=== PATIENT | female | born 1995 | race African-American/Black ===

== ENCOUNTER → 2016-10-05 | Day surgery (SDC) | payer OTHER ==
[~2016-10-05] MED LIST: KETOROLAC 60 MG/2 ML VIAL (J1885) As Ordered ONE; LIDOCAINE 2% INJ 100 MG/5 ML SDV (FOR ANES.) As Ordered ONE; LR 1,000 ML IV SCH; MEPERIDINE INJ 25 MG/ML VIAL (J2175) IV PRN; METOCLOPRAMIDE INJ 10MG/2ML VIAL (J2765) As Ordered ONE; METOCLOPRAMIDE INJ 10MG/2ML VIAL (J2765) IV PRN; MIDAZOLAM INJ 2 MG/2 ML VIAL (J2250) As Ordered ONE; NS 1,000 ML IV SCH; NS 500 ML IV ONE; ONDANSETRON 4MG/2ML VIAL (J2405) IV PRN; OXYTOCIN INJ 10 UNITS/ML VIAL (J2590) As Ordered ONE; PERCOCET 5MG/325MG TAB PO PRN; PRENCAP PO; PROPOFOL 200 MG/20 ML VIAL As Ordered ONE; RHOGAM 300 MCG (1500 IU) INJ (J2790) IM ONE; ROCURONIUM BROMIDE 50 MG/5 ML VIAL As Ordered ONE; dexameTHASONE 4 MG/ML 1ML VIAL (J1100) As Ordered ONE; fentaNYL 100 MCG/2 ML INJECTION (J3010) As Ordered ONE; fentaNYL 100 MCG/2 ML INJECTION (J3010) IV PRN
[2016-10-05 16:20] LABS: MEAN CORPUSCULAR HEMOGLOBIN 30.8 pg (27.0-33.0); MEAN CORPUSCULAR HGB CONC 34.1 g/dl (32.0-36.5); MEAN CORPUSCULAR VOLUME 90.2 fl (80.0-96.0); RED CELL DISTRIBUTION WIDTH 13.3 % (11.5-14.5); WHITE BLOOD COUNT 5.2 K/mm3 (4.0-10.0)
[2016-10-05 16:37] LABS: ANION GAP 8 MEQ/L (8-16); BLOOD UREA NITROGEN 10 MG/DL (7-18); CALCIUM LEVEL 8.7 MG/DL (8.5-10.1); CARBON DIOXIDE LEVEL 26 MEQ/L (21-32); CHLORIDE LEVEL 103 MEQ/L (98-107); CREATININE FOR GFR 0.66 MG/DL (0.55-1.02); GLUCOSE, FASTING 84 MG/DL (70-105); POTASSIUM SERUM 3.7 MEQ/L (3.5-5.1); SODIUM LEVEL 137 MEQ/L (136-145)
[2016-10-05 20:00] VITALS: BP 106/66
--- NOTE | 2016-10-06 00:05 | RO ---
DATE OF PROCEDURE: 10/05/2016 PREOPERATIVE DIAGNOSIS: Missed 8 weeks. POSTOPERATIVE DIAGNOSIS: Missed 8 weeks. OPERATION PROPOSED: Suction curettage. OPERATION PERFORMED: Suction curettage. SURGEON: Dr. Mario Alberto Hirsch LABOR/EXCAVATOR: ANESTHESIA: General. ESTIMATED BLOOD LOSS: 200 mL DESCRIPTION OF PROCEDURE: After adequate anesthesia, prepped and draped in lithotomy position. Sequentials on board. No antibiotics required. Bladder was drained for 50 mL of eduardo-colored urine. Weighted speculum in vagina, single-tooth tenaculum on the anterior lip of cervix. Uterus sounded to depth of 6 cm, dilated to Jumana 7-8, curved suction curette applied. Curettage to the cavity was smooth. Uterus placed in anatomical position, well contracted, receiving 5 units of Pitocin IV and then 15 running in the bottle. The patient was then sent to recovery in good condition. She is Rh negative, is a candidate for RhoGAM. Carbon Copy: Sawyer Winslow OB
== END | disposition home or self-care (01) ==
LOC: M SDC 15:33
PROVIDERS: ATTEND Obstetrics & Gynecology
DX: O02.1 Missed abortion (principal)
CPT/HCPCS: 36415; 59820; 80048; 84702; 85027; 86850; 86900; 86901; 88305; J1100; J1885; J2250; J2590; J2765; J2790; J3010

== ENCOUNTER 2016-10-28 10:51 | Emergency (ER) | payer OTHER ==
[~2016-10-28 10:51] MED LIST changes: -KETOROLAC 60 MG/2 ML VIAL (J1885) As Ordered ONE; -LIDOCAINE 2% INJ 100 MG/5 ML SDV (FOR ANES.) As Ordered ONE; -LR 1,000 ML IV SCH; -MEPERIDINE INJ 25 MG/ML VIAL (J2175) IV PRN; -METOCLOPRAMIDE INJ 10MG/2ML VIAL (J2765) As Ordered ONE; -METOCLOPRAMIDE INJ 10MG/2ML VIAL (J2765) IV PRN; -MIDAZOLAM INJ 2 MG/2 ML VIAL (J2250) As Ordered ONE; -NS 1,000 ML IV SCH; -NS 500 ML IV ONE; -ONDANSETRON 4MG/2ML VIAL (J2405) IV PRN; -OXYTOCIN INJ 10 UNITS/ML VIAL (J2590) As Ordered ONE; -PERCOCET 5MG/325MG TAB PO PRN; -PROPOFOL 200 MG/20 ML VIAL As Ordered ONE; -RHOGAM 300 MCG (1500 IU) INJ (J2790) IM ONE; -ROCURONIUM BROMIDE 50 MG/5 ML VIAL As Ordered ONE; -dexameTHASONE 4 MG/ML 1ML VIAL (J1100) As Ordered ONE; -fentaNYL 100 MCG/2 ML INJECTION (J3010) As Ordered ONE; -fentaNYL 100 MCG/2 ML INJECTION (J3010) IV PRN
[2016-10-28] MEDS ORDERED: METOCLOPRAMIDE INJ 10MG/2ML VIAL (J2765) As Ordered ONE (11:32)
[2016-10-28 11:43] LABS: MICROSCOPIC INDICATED? MAN YES (NO)
[2016-10-28 11:47] LABS: BACTERIA, URINE NONE SEEN; HYALINE CAST, URINE NONE SEEN /lpf (0-1); MICROSCOPIC EXAM PERFORMED; RBC, URINE TNTC /hpf (0-3); SQUAMOUS EPITHELIAL CELL URINE SMALL AMOUNT /hpf (SMALL AMT); WBC, URINE 0-1 /hpf (0-3)
[2016-10-28 12:06] LABS: ALBUMIN 3.9 GM/DL (3.2-5.2); ALBUMIN/GLOBULIN RATIO 1.08 (1.00-1.93); ALKALINE PHOSPHATASE 62 U/L (45-117); ALT/SGPT 13 U/L (12-78); ANION GAP 8 MEQ/L (8-16); AST/SGOT 13 U/L (15-37); BILIRUBIN,TOTAL 1.3 MG/DL (0.2-1.0); BLOOD UREA NITROGEN 9 MG/DL (7-18); CALCIUM LEVEL 8.5 MG/DL (8.5-10.1); CARBON DIOXIDE LEVEL 26 MEQ/L (21-32); CHLORIDE LEVEL 107 MEQ/L (98-107); CREATININE FOR GFR 0.71 MG/DL (0.55-1.02); GLUCOSE, FASTING 95 MG/DL (70-105); POTASSIUM SERUM 3.5 MEQ/L (3.5-5.1); SODIUM LEVEL 141 MEQ/L (136-145); TOTAL PROTEIN 7.5 GM/DL (6.4-8.2)
[2016-10-28 12:21] LABS: MEAN CORPUSCULAR HEMOGLOBIN 29.7 pg (27.0-33.0); MEAN CORPUSCULAR HGB CONC 32.1 g/dl (32.0-36.5); MEAN CORPUSCULAR VOLUME 92.5 fl (80.0-96.0); RED CELL DISTRIBUTION WIDTH 12.5 % (11.5-14.5); WHITE BLOOD COUNT 2.6 K/mm3 (4.0-10.0)
--- NOTE | 2016-10-28 13:52 | REP ---
PELVIC SONOGRAPHY: HISTORY: Pelvic pain. Status post D and C. FINDINGS: Transabdominal and transvaginal scanning are performed. Uterine dimensions are 8.1 x 4.0 x 5.3 cm. Endometrial echo is 0.6 cm thick. There is a small quantity of free fluid in the right adnexa. No focal uterine mass is seen. Doppler flow is normal in both ovaries. Resistive index for the right ovary is 0.34 for the left 0.44. There is a 1.6 x 1.3 x 0.8 cm cystic area in the right ovary. Right ovary dimensions are 2.5 x 2.0 x 3.1 cm. Left ovary measures 2.4 x 1.7 x 1.2 cm. IMPRESSION: Small hypoechoic cyst right ovary may be a hemorrhagic cyst, 1.6 cm . Small quantity of right sided cul-de-sac fluid. Otherwise unremarkable pelvic sonography. Signed by Jarrell Raymond MD 10/28/2016 02:28 P
--- NOTE | 2016-10-28 14:14 | EDDOCDS ---
Nurse's Notes [facility] Name: Charlene Zazueta Age: 20 yrs Sex: Female : 1995 Arrival Date: 10/28/2016 Time: 10:51 Bed I3 / M3 Private MD: NO PRIMARY PHYSICIAN, . Diagnosis: Other abnormal uterine and vaginal bleeding-S/P D&C 10/05/16;Other ovarian cysts-Right;Anemia, unspecified Presentation: 10/28 11:02 Presenting complaint: Patient states: had a D&C for miscarriage 3 weeks ago , heavy [facility] vaginal bleeding with clots started 10-25-16 going through a pad per hour.denies feeling dizzy or faint. Risk factors: The patient reports no loss of conciousness prior to arrival. This patient has not had a hysterectomy. This patient has not begun menopause. Adult Sepsis Screening: The patient does not have new or worsening altered mentation. Patient's respiratory rate is less than 22. Systolic blood pressure is greater than 100. Patient has a qSOFA score of 0- Negative Sepsis Screen. Suicide/Homicide risk assessment- the patient denies having any suicidal and/or homicidal ideations and does not present with any other emotional, behavioral or mental health complaints. Status: The patient is a dependent. Transition of care: patient was not received from another setting of care. 11:02 Acuity: CHRISTIANO Level 3 [facility] 11:02 Method Of Arrival: Walkin/Carried/Asstd [facility] Triage Assessment: 11:05 General: Appears comfortable, well nourished, well groomed, Behavior is appropriate for [facility] age. Pain: Denies pain. HIV screening NA for this visit Offered previously. Neurological: Level of Consciousness is awake, alert. Respiratory: Airway is patent Respiratory effort is even, unlabored. : Reports vaginal bleeding that is bright red with clots heavy flow. Derm: Skin is pink, warm & dry. 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 none - PMHx: none; - PSHx: D & C; - Social history: Smoking status: Patient states was never smoker of tobacco. No barriers to communication noted, The patient speaks fluent [place]. - Family history: Not pertinent. - : The pt / caregiver states he / she is not on anticoagulants. Home medication list is obtained from the patient. - Exposure Risk Screening:: None identified. Screenin:36 Screening information is obtained from the patient. Fall risk: No risks identified. pml Assistance ADL's: requires no assistance with activities of daily living. Abuse/DV Screen: The patient / caregiver reports he/she is: not in a situation that causes fear, pain or injury. Nutritional screening: No deficits noted. Advance Directives: Currently, there is no health care proxy. home support is adequate. Assessment: 11:36 General: Appears in no apparent distress, Behavior is appropriate for age, cooperative. pml Pain: Denies pain. Neurological: Level of Consciousness is awake, alert, Oriented to person, place, time. Cardiovascular: Capillary refill < 3 seconds. Respiratory: Airway is patent Respiratory effort is. GI: Abdomen is non- distended. : Reports vaginal bleeding that is bright red heavy flow Denies burning with urination, malodorous discharge. Derm: Skin is normal. 12:35 Reassessment: Patient appears in no apparent distress at this time. Patient denies pain jo3 at this time. awaiting results at this time. Aware of plan of care . 13:25 General: Appears in no apparent distress, comfortable, Behavior is appropriate for age, jo3 cooperative, pleasant. General: Awaiting disposition at this time. Significant other at bedside. Aware of plan of care . Neurological: Level of Consciousness is awake, alert, Oriented to person, place, time. Respiratory: Airway is patent Respiratory effort is even, unlabored. 14:13 General: Appears in no apparent distress, comfortable, Behavior is appropriate for age, jo3 cooperative, pleasant. Pain: Denies pain. Neurological: No deficits noted. Level of Consciousness is awake, alert, Oriented to person, place, time. Cardiovascular: No deficits noted. Respiratory: Airway is patent Respiratory effort is even, unlabored. Vital Signs: 10:54 BP 133 / 76; Pulse 97; Resp 17; Temp 98.3(T); Pulse Ox 100% on R/A; Weight 47.63 kg lr2 (R); Height 5 ft. 6 in. (167.64 cm) (R); Pain 0/10; 13:33 BP 112 / 65; Pulse 71; Resp 18; Temp 97.9; Pulse Ox 100% ; Pain 0/10; jam1 10:54 Body Mass Index 16.95 (47.63 kg, 167.64 cm) lr2 Vitals: 10:54 Log In Time: October 28, 2016 at 10:51. lr2 ED Course: 10:53 Patient visited by Miriam Medrano. lr2 10:53 NO PRIMARY PHYSICIAN, . is Private Physician. lr2 10:53 Patient moved to Waiting lr2 10:55 Patient moved to Pre RCE lr2 11:04 Triage Initiated [facility] 11:09 Patient moved to Triage 1 [facility] 11:10 Cielo Buckley PA-C is PHCP. ef1 11:10 Ninfa Bermudez MD is Attending Physician. ef1 11:10 Patient visited by Cielo Buckley PA-C. ef1 11:24 Patient moved to I3 / M3 jam1 11:36 The patient / caregiver is instructed regarding the plan of care and ED course. Patient pml has correct armband on for positive identification. Placed in gown. Bed in low position. Call light in reach. Side rails up X2. 11:36 Inserted peripheral IV: 20gauge IV in right antecubital area and blood collected. pml Patient tolerated the procedure well. 11:37 Patient visited by Gisela Skinner RN. pml 11:55 [facility] Payment Agreement was scanned into [employer] and attached to record. lg 12:09 Patient moved to Ultrasound am17 12:25 Patient moved to I3 / M3 am17 12:39 Patient visited by Cielo Buckley PA-C. ef1 12:52 Patient visited by Malathi Brown PCA. jam1 13:32 Patient visited by Cielo Buckley PA-C. ef1 14:01 Sawyer Winslow OB is Referral Physician. ef1 14:01 - Pelvic Non-Ob Complete Returned. EDMS 14:13 Discontinued IV lock intact, bleeding controlled, pressure dressing applied, No jo3 redness/swelling at site. No procedures done that require assistance. Administered Medications: 11:40 Drug: NS 0.9% 1000 ml [sodium chloride 0.9 % intravenous solution] Route: IV; Rate: jo3 bolus; Site: right antecubital; 11:40 Drug: Metoclopramide 10 mg [metoclopramide 5 mg/mL injection solution] Route: IV; Rate: jo3 40 mg/hr; Infused Over: 15 mins; Site: right antecubital; 12:00 Follow up: IV Status: Completed infusion jo3 Order Results: Lab Order: Complete Blood Count; [facility] 11:34 Test: WHITE BLOOD COUNT; Value: 2.6; Range: 4.0-10.0; Abnormal: Below low normal; Units: K/mm3; Status: F Test: RED BLOOD COUNT; Value: 3.70; Range: 4.00-5.40; Abnormal: Below low normal; Units: M/mm3; Status: F Test: HEMOGLOBIN; Value: 11.0; Range: 12.0-16.0; Abnormal: Below low normal; Units: g/dl; Status: F Test: HEMATOCRIT; Value: 34.2; Range: 36.0-47.0; Abnormal: Below low normal; Units: %; Status: F Test: MEAN CORPUSCULAR VOLUME; Value: 92.5; Range: 80.0-96.0; Units: fl; Status: F Test: MEAN CORPUSCULAR HEMOGLOBIN; Value: 29.7; Range: 27.0-33.0; Units: pg; Status: F Test: MEAN CORPUSCULAR HGB CONC; Value: 32.1; Range: 32.0-36.5; Units: g/dl; Status: F Test: RED CELL DISTRIBUTION WIDTH; Value: 12.5; Range: 11.5-14.5; Units: %; Status: F Test: PLATELET COUNT, AUTOMATED; Value: 181; Range: 150-450; Units: k/mm3; Status: F Lab Order: Type & Screen; [facility]10/[facility] 11:34 Test: BLOOD TYPE; Value: O NEG; Status: F Test: AB SCREEN (INDIRECT SARAH)GEL; Value: POSITIVE; Status: F Lab Order: Complete Comphrensive Metabolic; [facility]10/28/16 11:34 Test: GLUCOSE, FASTING; Value: 95; Range: 70-105; Units: MG/DL; Status: F Test: BLOOD UREA NITROGEN; Value: 9; Range: 7-18; Units: MG/DL; Status: F Test: CREATININE FOR GFR; Value: 0.71; Range: 0.55-1.02; Units: MG/DL; Status: F Test: SODIUM LEVEL; Value: 141; Range: 136-145; Units: MEQ/L; Status: F Test: POTASSIUM SERUM; Value: 3.5; Range: 3.5-5.1; Units: MEQ/L; Status: F Test: CHLORIDE LEVEL; Value: 107; Range: 98-107; Units: MEQ/L; Status: F Test: CARBON DIOXIDE LEVEL; Value: 26; Range: 21-32; Units: MEQ/L; Status: F Test: ANION GAP; Value: 8; Range: 8-16; Units: MEQ/L; Status: F Test: CALCIUM LEVEL; Value: 8.5; Range: 8.5-10.1; Units: MG/DL; Status: F Test: AST/SGOT; Value: 13; Range: 15-37; Abnormal: Below low normal; Units: U/L; Status: F Test: ALT/SGPT; Value: 13; Range: 12-78; Units: U/L; Status: F Test: ALKALINE PHOSPHATASE; Value: 62; Range: 45-117; Units: U/L; Status: F Test: BILIRUBIN,TOTAL; Value: 1.3; Range: 0.2-1.0; Abnormal: Above high normal; Units: MG/DL; Status: F Test: TOTAL PROTEIN; Value: 7.5; Range: 6.4-8.2; Units: GM/DL; Status: F Test: ALBUMIN; Value: 3.9; Range: 3.2-5.2; Units: GM/DL; Status: F Test: ALBUMIN/GLOBULIN RATIO; Value: 1.08; Range: 1.00-1.93; Status: F Lab Order: URINALYSIS MANUAL; SPEC'M 10/28/16 11:27 Test: APPEARANCE, URINE MANUAL; Value: TURBID; Range: CLEAR; Abnormal: Above high normal; Status: F Test: COLOR, URINE MANUAL; Value: RED; Range: YELLOW; Abnormal: Above high normal; Status: F Test: PH,URINE MAN; Value: 6.0; Range: 5.0 - 9.0; Units: UNITS; Status: F Test: SPECIFIC GRAVITY,URINE MANUAL; Value: 1.015; Range: 1.002-1.035; Status: F Test: PROTEIN, URINE MANUAL; Value: 3+; Range: NEGATIVE; Abnormal: Above high normal; Units: mg/dL; Status: F Test: GLUCOSE, URINE (UA) MANUAL; Value: NEGATIVE; Range: NEGATIVE; Units: mg/dL; Status: F Test: KETONE, URINE MANUAL; Value: NEGATIVE; Range: NEGATIVE; Units: mg/dL; Status: F Test: UROBILINOGEN, URINE MANUAL; Value: NORMAL; Range: NORMAL; Units: mg/dl; Status: F Test: BILIRUBIN, URINE MANUAL; Value: NEGATIVE; Range: NEGATIVE; Status: F Test: NITRITE, URINE MANUAL; Value: NEGATIVE; Range: NEGATIVE; Status: F Test: LEUKOCYTE ESTERASE, URINE MAN; Value: TRACE; Range: NEGATIVE; Abnormal: Above high normal; Status: F Test: BLOOD URINE MANUAL; Value: POSITIVE; Range: NEGATIVE; Abnormal: Above high normal; Status: F Lab Order: MICROSCOPIC, URINE; SPEC'M 10/28/16 11:27 Test: WBC, URINE; Value: 0-1; Range: 0-3; Units: /hpf; Status: F Test: RBC, URINE; Value: TNTC; Range: 0-3; Abnormal: Above high normal; Units: /hpf; Status: F Test: SQUAMOUS EPITHELIAL CELL URINE; Value: SMALL AMOUNT; Range: SMALL AMT; Units: /hpf; Status: F Test: BACTERIA, URINE; Value: NONE SEEN; Range: NONE; Status: F Test: HYALINE CAST, URINE; Value: NONE SEEN; Range: 0-1; Units: /lpf; Status: F Test: MICROSCOPIC EXAM; Value: PERFORMED; Status: F Radiology Order: -US Pelvic Non-Ob Complete Test: -US Pelvic Non-Ob Complete REASON FOR EXAMINATION: Pelvic Pain, post DC; PELVIC SONOGRAPHY:; ; HISTORY: Pelvic pain. Status post D and C.; ; FINDINGS: Transabdominal and transvaginal scanning are performed. Uterine; dimensions are 8.1 x 4.0 x 5.3 cm. Endometrial echo is 0.6 cm thick. There is a; small quantity of free fluid in the right adnexa. No focal uterine mass is seen.; Doppler flow is normal in both ovaries. Resistive index for the right ovary is; 0.34 for the left 0.44. There is a 1.6 x 1.3 x 0.8 cm cystic area in the right; ovary. Right ovary dimensions are 2.5 x 2.0 x 3.1 cm. Left ovary measures 2.4 x; 1.7 x 1.2 cm.; ; IMPRESSION:; Small hypoechoic cyst right ovary may be a hemorrhagic cyst, 1.6 cm . Small; quantity of right sided cul-de-sac fluid. Otherwise unremarkable pelvic; sonography.; ; ; ; ; Unreviewed; Outcome: 14:01 Discharge ordered by Provider. ef1 14:13 Discharge Assessment: Patient awake, alert and oriented x 3. No cognitive and/or jo3 functional deficits noted. Patient verbalized understanding of disposition instructions. patient administered narcotics - no. The following High Risk Discharge criteria are identified: None. Discharged to home ambulatory, with significant other. Condition: stable. Discharge instructions given to patient, Instructed on discharge instructions, follow up and referral plans. medication usage, Demonstrated understanding of instructions, medications, Pt was receptive of discharge instructions/ teaching. Prescriptions given X 2. Ultrasound Study completed. Property sent home with patient. 14:14 Patient left the ED. jo3 Signatures: Dispatcher [employer] EDMS Madison Rivas, RN RN Malathi Coleman, PHARMACIST IN CHARGE OWNER PHARMACIST IN CHARGE OWNER jam1 Dominga Bland, Reg Reg Adela Vásquez RN RN jo3 Cielo Buckley, PA-C PA-C ef1 Gisela Skinner,RN RN Sharon Junior Laura lr2 MTDD
--- NOTE | 2016-10-28 14:14 | EDDOCDS ---
Physician Documentation [facility] Name: Charlene Zazueta Age: 20 yrs Sex: Female : 1995 Arrival Date: 10/28/2016 Time: 10:51 Bed I3 / M3 Private MD: NO PRIMARY PHYSICIAN, . Disposition: 10/28/16 14:01 Discharged to Home/Self Care. Impression: Other abnormal uterine and vaginal bleeding - S/P D&C 10/05/16, Other ovarian cysts - Right, Anemia, unspecified. - Condition is Stable. - Discharge Instructions: Anemia, Nonspecific, Ovarian Cyst, [id number]. - Prescriptions for Naprosyn 500 mg Oral Tablet - take 1 tablet by ORAL route 2 times per day take with food; 30 tablet. ZOFRAN ODT 4 mg - dissolve 1 tablet by ORAL route 4 times per day As needed do not chew, do not swallow whole; 10 tablet. - Medication Reconciliation, Local Pharmacy Hours form. - Follow up: [facility] [place]; When: 1 - 2 days; Reason: Further diagnostic work-up, Recheck today's complaints, Continuance of care. Follow up: Emergency Department; Reason: Worsening of conditions. - Problem is new. - Symptoms have improved. Historical: - Allergies: No known drug Allergies; - Home Meds: 1. none - PMHx: none; - PSHx: D & C; - Social history: Smoking status: Patient states was never smoker of tobacco. No barriers to communication noted, The patient speaks fluent [place]. - Family history: Not pertinent. - : The pt / caregiver states he / she is not on anticoagulants. Home medication list is obtained from the patient. - Exposure Risk Screening:: None identified. 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 6 in. (167.64 cm) (R); Pain 0/10; 13:33 BP 112 / 65; Pulse 71; Resp 18; Temp 97.9; Pulse Ox 100% ; Pain 0/10; jam1 10:54 Body Mass Index 16.95 (47.63 kg, 167.64 cm) lr2 MDM: 11:22 IV Saline Lock ordered. ef1 11:22 Undress patient appropriately for examination ordered. ef1 11:22 NS 0.9% 1000 ml IV at bolus once ordered. ef1 11:22 Metoclopramide 10 mg IV at 40 mg/hr once over 15 mins ordered. ef1 11:23 -US Pelvic Non-Ob Complete Ordered. EDMS 11:23 Complete Blood Count Ordered. EDMS 11:23 Type & Screen Ordered. EDMS 11:23 Urine Culture Ordered. EDMS 11:23 Complete Comphrensive Metabolic Ordered. EDMS 11:23 DUPLEX SCAN LIMITED (DOPPLER)+US Ordered. EDMS 11:34 URINALYSIS MANUAL Ordered. EDMS 11:39 Financial registration complete. lg 11:55 [facility] Payment Agreement was scanned into [employer] and attached to record. lg 12:22 Transvaginal NON- US Ordered. EDMS 13:33 Complete Blood Count Reviewed. ef1 13:33 Complete Comphrensive Metabolic Reviewed. ef1 13:33 URINALYSIS MANUAL Reviewed. ef1 13:33 MICROSCOPIC, URINE Reviewed. ef1 13:34 ANTIBODY IDENTIFICATION Ordered. EDMS 13:35 Type & Screen Reviewed. ef1 Administered Medications: 11:40 Drug: NS 0.9% 1000 ml [sodium chloride 0.9 % intravenous solution] Route: IV; Rate: jo3 bolus; Site: right antecubital; 11:40 Drug: Metoclopramide 10 mg [metoclopramide 5 mg/mL injection solution] Route: IV; Rate: jo3 40 mg/hr; Infused Over: 15 mins; Site: right antecubital; 12:00 Follow up: IV Status: Completed infusion jo3 Signatures: Dispatcher [employer] EDND Madison Rivas RN RN kpj Ganter, LoriLee, Dariusz Reg lg Adela FuentesRN RN jo3 Cielo Buckley PA-C PATen ef1 Gisela SkinnerRN EMELYN khan The chart was reviewed and I authenticate all verbal orders and agree with the evaluation and treatment provided.Corrections: (The following items were deleted from the chart) 11:34 11:23 URINALYSIS+LAB ordered. EDMS EDMS Attachments: 11:55 [facility] Payment Agreement lg MTDD
--- NOTE | 2016-10-30 15:14 | EDDOCDS ---
Physician Documentation [facility] Name: Charlene Zazueta Age: 20 yrs Sex: Female : 1995 Arrival Date: 10/28/2016 Time: 10:51 Bed I3 / M3 Private MD: NO PRIMARY PHYSICIAN, . Disposition: 10/28/16 14:01 Discharged to Home/Self Care. Impression: Other abnormal uterine and vaginal bleeding - S/P D&C 10/05/16, Other ovarian cysts - Right, Anemia, unspecified. - Condition is Stable. - Discharge Instructions: Anemia, Nonspecific, Ovarian Cyst, [id number]. - Prescriptions for Naprosyn 500 mg Oral Tablet - take 1 tablet by ORAL route 2 times per day take with food; 30 tablet. ZOFRAN ODT 4 mg - dissolve 1 tablet by ORAL route 4 times per day As needed do not chew, do not swallow whole; 10 tablet. - Medication Reconciliation, Local Pharmacy Hours form. - Follow up: [facility] [place]; When: 1 - 2 days; Reason: Further diagnostic work-up, Recheck today's complaints, Continuance of care. Follow up: Emergency Department; Reason: Worsening of conditions. - Problem is new. - Symptoms have improved. Historical: - Allergies: No known drug Allergies; - Home Meds: 1. none - PMHx: none; - PSHx: D & C; - Social history: Smoking status: Patient states was never smoker of tobacco. No barriers to communication noted, The patient speaks fluent [place]. - Family history: Not pertinent. - : The pt / caregiver states he / she is not on anticoagulants. Home medication list is obtained from the patient. - Exposure Risk Screening:: None identified. 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 6 in. (167.64 cm) (R); Pain 0/10; 12:10 Pain 0/10; jo3 13:33 BP 112 / 65; Pulse 71; Resp 18; Temp 97.9; Pulse Ox 100% ; Pain 0/10; jam1 10:54 Body Mass Index 16.95 (47.63 kg, 167.64 cm) lr2 MDM: 11:22 IV Saline Lock ordered. ef1 11:22 Undress patient appropriately for examination ordered. ef1 11:22 NS 0.9% 1000 ml IV at bolus once ordered. ef1 11:22 Metoclopramide 10 mg IV at 40 mg/hr once over 15 mins ordered. ef1 11:23 -US Pelvic Non-Ob Complete Ordered. EDMS 11:23 Complete Blood Count Ordered. EDMS 11:23 Type & Screen Ordered. EDMS 11:23 Urine Culture Ordered. EDMS 11:23 Complete Comphrensive Metabolic Ordered. EDMS 11:23 DUPLEX SCAN LIMITED (DOPPLER)+US Ordered. EDMS 11:34 URINALYSIS MANUAL Ordered. EDMS 11:39 Financial registration complete. lg 11:55 [facility] Payment Agreement was scanned into [employer] and attached to record. lg 12:22 Transvaginal NON- US Ordered. EDMS 13:33 Complete Blood Count Reviewed. ef1 13:33 Complete Comphrensive Metabolic Reviewed. ef1 13:33 URINALYSIS MANUAL Reviewed. ef1 13:33 MICROSCOPIC, URINE Reviewed. ef1 13:34 ANTIBODY IDENTIFICATION Ordered. EDMS 13:35 Type & Screen Reviewed. ef1 17:17 T-Sheet-- Draft Copy was scanned into [employer] and attached to record. klr Administered Medications: 11:40 Drug: NS 0.9% 1000 ml [sodium chloride 0.9 % intravenous solution] Route: IV; Rate: jo3 bolus; Site: right antecubital; 14:14 Follow up: IV Status: Completed infusion jo3 11:40 Drug: Metoclopramide 10 mg [metoclopramide 5 mg/mL injection solution] Route: IV; Rate: jo3 40 mg/hr; Infused Over: 15 mins; Site: right antecubital; 12:00 Follow up: IV Status: Completed infusion jo3 12:10 Follow up: Pain 0/10 Adult jo3 Signatures: Dispatcher [employer] EDMS Madison Rivas RN RN kpj Ganter, LoriLee, Dariusz Reg Adela Fuentes RN RN jo3 Cielo Buckley, PA-C PA-C ef1 Gisela Skinner RN RN pml Redder, Kathie klr The chart was reviewed and I authenticate all verbal orders and agree with the evaluation and treatment provided.Corrections: (The following items were deleted from the chart) 11:34 11:23 URINALYSIS+LAB ordered. EDMS EDMS Attachments: 11:55 [facility] Payment Agreement lg 17:17 T-Sheet-- Draft Copy klr Chart Complete MTDD
--- NOTE | 2016-10-30 15:14 | EDDOCDS ---
Physician Documentation [facility] Name: Charlene Zazueta Age: 20 yrs Sex: Female : 1995 Arrival Date: 10/28/2016 Time: 10:51 Bed I3 / M3 Private MD: NO PRIMARY PHYSICIAN, . Disposition: 10/28/16 14:01 Discharged to Home/Self Care. Impression: Other abnormal uterine and vaginal bleeding - S/P D&C 10/05/16, Other ovarian cysts - Right, Anemia, unspecified. - Condition is Stable. - Discharge Instructions: Anemia, Nonspecific, Ovarian Cyst, [id number]. - Prescriptions for Naprosyn 500 mg Oral Tablet - take 1 tablet by ORAL route 2 times per day take with food; 30 tablet. ZOFRAN ODT 4 mg - dissolve 1 tablet by ORAL route 4 times per day As needed do not chew, do not swallow whole; 10 tablet. - Medication Reconciliation, Local Pharmacy Hours form. - Follow up: [place]; When: 1 - 2 days; Reason: Further diagnostic work-up, Recheck today's complaints, Continuance of care. Follow up: Emergency Department; Reason: Worsening of conditions. - Problem is new. - Symptoms have improved. Historical: - Allergies: No known drug Allergies; - Home Meds: 1. none - PMHx: none; - PSHx: D & C; - Social history: Smoking status: Patient states was never smoker of tobacco. No barriers to communication noted, The patient speaks fluent Cameroonian. - Family history: Not pertinent. - : The pt / caregiver states he / she is not on anticoagulants. Home medication list is obtained from the patient. - Exposure Risk Screening:: None identified. 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 6 in. (167.64 cm) (R); Pain 0/10; 12:10 Pain 0/10; jo3 13:33 BP 112 / 65; Pulse 71; Resp 18; Temp 97.9; Pulse Ox 100% ; Pain 0/10; jam1 10:54 Body Mass Index 16.95 (47.63 kg, 167.64 cm) lr2 MDM: 11:22 IV Saline Lock ordered. ef1 11:22 Undress patient appropriately for examination ordered. ef1 11:22 NS 0.9% 1000 ml IV at bolus once ordered. ef1 11:22 Metoclopramide 10 mg IV at 40 mg/hr once over 15 mins ordered. ef1 11:23 -US Pelvic Non-Ob Complete Ordered. EDMS 11:23 Complete Blood Count Ordered. EDMS 11:23 Type & Screen Ordered. EDMS 11:23 Urine Culture Ordered. EDMS 11:23 Complete Comphrensive Metabolic Ordered. EDMS 11:23 DUPLEX SCAN LIMITED (DOPPLER)+US Ordered. EDMS 11:34 URINALYSIS MANUAL Ordered. EDMS 11:39 Financial registration complete. lg 11:55 [facility] Payment Agreement was scanned into [employer] and attached to record. lg 12:22 Transvaginal NON- US Ordered. EDMS 13:33 Complete Blood Count Reviewed. ef1 13:33 Complete Comphrensive Metabolic Reviewed. ef1 13:33 URINALYSIS MANUAL Reviewed. ef1 13:33 MICROSCOPIC, URINE Reviewed. ef1 13:34 ANTIBODY IDENTIFICATION Ordered. EDMS 13:35 Type & Screen Reviewed. ef1 17:17 T-Sheet-- Draft Copy was scanned into [employer] and attached to record. klr Administered Medications: 11:40 Drug: NS 0.9% 1000 ml [sodium chloride 0.9 % intravenous solution] Route: IV; Rate: jo3 bolus; Site: right antecubital; 14:14 Follow up: IV Status: Completed infusion jo3 11:40 Drug: Metoclopramide 10 mg [metoclopramide 5 mg/mL injection solution] Route: IV; Rate: jo3 40 mg/hr; Infused Over: 15 mins; Site: right antecubital; 12:00 Follow up: IV Status: Completed infusion jo3 12:10 Follow up: Pain 0/10 Adult jo3 Signatures: Dispatcher [employer] EDMS Madison Rivas RN RN kpj Ganter, LoriLee, Dariusz Reg Adela Fuentes RN RN jo3 Cielo Buckley, PA-C PA-C ef1 Gisela Skinner RN RN pml Redder, Kathie klr The chart was reviewed and I authenticate all verbal orders and agree with the evaluation and treatment provided.Corrections: (The following items were deleted from the chart) 11:34 11:23 URINALYSIS+LAB ordered. EDMS EDMS Attachments: 11:55 [facility] Payment Agreement lg 17:17 T-Sheet-- Draft Copy klr Chart Complete MTDD
--- NOTE | 2016-10-30 15:14 | EDDOCDS ---
Nurse's Notes [facility] Name: Charlene Zazueta Age: 20 yrs Sex: Female : 1995 Arrival Date: 10/28/2016 Time: 10:51 Bed I3 / M3 Private MD: NO PRIMARY PHYSICIAN, . Diagnosis: Other abnormal uterine and vaginal bleeding-S/P D&C 10/05/16;Other ovarian cysts-Right;Anemia, unspecified Presentation: 10/28 11:02 Presenting complaint: Patient states: had a D&C for miscarriage 3 weeks ago , heavy [facility] vaginal bleeding with clots started 10-25-16 going through a pad per hour.denies feeling dizzy or faint. Risk factors: The patient reports no loss of conciousness prior to arrival. This patient has not had a hysterectomy. This patient has not begun menopause. Adult Sepsis Screening: The patient does not have new or worsening altered mentation. Patient's respiratory rate is less than 22. Systolic blood pressure is greater than 100. Patient has a qSOFA score of 0- Negative Sepsis Screen. Suicide/Homicide risk assessment- the patient denies having any suicidal and/or homicidal ideations and does not present with any other emotional, behavioral or mental health complaints. Status: The patient is a dependent. Transition of care: patient was not received from another setting of care. 11:02 Acuity: CHRISTIANO Level 3 [facility] 11:02 Method Of Arrival: Walkin/Carried/[facility]std [facility] Triage Assessment: 11:05 General: Appears comfortable, well nourished, well groomed, Behavior is appropriate for [facility] age. Pain: Denies pain. HIV screening NA for this visit Offered previously. Neurological: Level of Consciousness is awake, alert. Respiratory: Airway is patent Respiratory effort is even, unlabored. : Reports vaginal bleeding that is bright red with clots heavy flow. Derm: Skin is pink, warm & dry. 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 none - PMHx: none; - PSHx: D & C; - Social history: Smoking status: Patient states was never smoker of tobacco. No barriers to communication noted, The patient speaks fluent Israeli. - Family history: Not pertinent. - : The pt / caregiver states he / she is not on anticoagulants. Home medication list is obtained from the patient. - Exposure Risk Screening:: None identified. Screenin:36 Screening information is obtained from the patient. Fall risk: No risks identified. pml Assistance ADL's: requires no assistance with activities of daily living. Abuse/DV Screen: The patient / caregiver reports he/she is: not in a situation that causes fear, pain or injury. Nutritional screening: No deficits noted. Advance Directives: Currently, there is no health care proxy. home support is adequate. Assessment: 11:36 General: Appears in no apparent distress, Behavior is appropriate for age, cooperative. pml Pain: Denies pain. Neurological: Level of Consciousness is awake, alert, Oriented to person, place, time. Cardiovascular: Capillary refill < 3 seconds. Respiratory: Airway is patent Respiratory effort is. GI: Abdomen is non- distended. : Reports vaginal bleeding that is bright red heavy flow Denies burning with urination, malodorous discharge. Derm: Skin is normal. 12:35 Reassessment: Patient appears in no apparent distress at this time. Patient denies pain jo3 at this time. awaiting results at this time. Aware of plan of care . 13:25 General: Appears in no apparent distress, comfortable, Behavior is appropriate for age, jo3 cooperative, pleasant. General: Awaiting disposition at this time. Significant other at bedside. Aware of plan of care . Neurological: Level of Consciousness is awake, alert, Oriented to person, place, time. Respiratory: Airway is patent Respiratory effort is even, unlabored. 14:13 General: Appears in no apparent distress, comfortable, Behavior is appropriate for age, jo3 cooperative, pleasant. Pain: Denies pain. Neurological: No deficits noted. Level of Consciousness is awake, alert, Oriented to person, place, time. Cardiovascular: No deficits noted. Respiratory: Airway is patent Respiratory effort is even, unlabored. Vital Signs: 10:54 BP 133 / 76; Pulse 97; Resp 17; Temp 98.3(T); Pulse Ox 100% on R/A; Weight 47.63 kg lr2 (R); Height 5 ft. 6 in. (167.64 cm) (R); Pain 0/10; 12:10 Pain 0/10; jo3 13:33 BP 112 / 65; Pulse 71; Resp 18; Temp 97.9; Pulse Ox 100% ; Pain 0/10; jam1 10:54 Body Mass Index 16.95 (47.63 kg, 167.64 cm) lr2 Vitals: 10:54 Log In Time: October 28, 2016 at 10:51. lr2 ED Course: 10:53 Patient visited by Miriam Medrano. lr2 10:53 NO PRIMARY PHYSICIAN, . is Private Physician. lr2 10:53 Patient moved to Waiting lr2 10:55 Patient moved to Pre RCE lr2 11:04 Triage Initiated kp 11:09 Patient moved to Triage 1 [facility] 11:10 [facility] ef1 11:10 Ninfa Bermudez MD is Attending Physician. ef1 11:10 Patient visited by Cielo Buckley PA-C. ef1 11:24 Patient moved to I3 / M3 jam1 11:36 The patient / caregiver is instructed regarding the plan of care and ED course. Patient pml has correct armband on for positive identification. Placed in gown. Bed in low position. Call light in reach. Side rails up X2. 11:36 Inserted peripheral IV: 20gauge IV in right antecubital area and blood collected. pml Patient tolerated the procedure well. 11:37 Patient visited by Gisela Skinner RN. pml 11:55 [facility] Payment Agreement was scanned into [employer] and attached to record. lg 12:09 Patient moved to Ultrasound am17 12:25 Patient moved to I3 / M3 am17 12:39 Patient visited by Cielo Buckley PA-C. ef1 12:52 Patient visited by Malathi Brown PCA. [facility] 13:32 Patient visited by Cielo Buckley PA-C. ef1 14:01 Sawyer Winslow OB is Referral Physician. ef1 14:01 - Pelvic Non-Ob Complete Returned. EDMS 14:13 Discontinued IV lock intact, bleeding controlled, pressure dressing applied, No jo3 redness/swelling at site. No procedures done that require assistance. 17:17 T-Sheet-- Draft Copy was scanned into [employer] and attached to record. klr Administered Medications: 11:40 Drug: NS 0.9% 1000 ml [sodium chloride 0.9 % intravenous solution] Route: IV; Rate: jo3 bolus; Site: right antecubital; 14:14 Follow up: IV Status: Completed infusion jo3 11:40 Drug: Metoclopramide 10 mg [metoclopramide 5 mg/mL injection solution] Route: IV; Rate: jo3 40 mg/hr; Infused Over: 15 mins; Site: right antecubital; 12:00 Follow up: IV Status: Completed infusion jo3 12:10 Follow up: Pain 0/10 Adult jo3 Order Results: Lab Order: Complete Blood Count; SPEC10/28/16 11:34 Test: WHITE BLOOD COUNT; Value: 2.6; Range: 4.0-10.0; Abnormal: Below low normal; Units: K/mm3; Status: F Test: RED BLOOD COUNT; Value: 3.70; Range: 4.00-5.40; Abnormal: Below low normal; Units: M/mm3; Status: F Test: HEMOGLOBIN; Value: 11.0; Range: 12.0-16.0; Abnormal: Below low normal; Units: g/dl; Status: F Test: HEMATOCRIT; Value: 34.2; Range: 36.0-47.0; Abnormal: Below low normal; Units: %; Status: F Test: MEAN CORPUSCULAR VOLUME; Value: 92.5; Range: 80.0-96.0; Units: fl; Status: F Test: MEAN CORPUSCULAR HEMOGLOBIN; Value: 29.7; Range: 27.0-33.0; Units: pg; Status: F Test: MEAN CORPUSCULAR HGB CONC; Value: 32.1; Range: 32.0-36.5; Units: g/dl; Status: F Test: RED CELL DISTRIBUTION WIDTH; Value: 12.5; Range: 11.5-14.5; Units: %; Status: F Test: PLATELET COUNT, AUTOMATED; Value: 181; Range: 150-450; Units: k/mm3; Status: F Lab Order: Type & Screen; SPEC10/28/16 11:34 Test: BLOOD TYPE; Value: O NEG; Status: F Test: AB SCREEN (INDIRECT SARAH)GEL; Value: POSITIVE; Status: F Lab Order: Urine Culture; SPEC10/28/16 11:27 Test: URINE CULTURE; Value: <EXTERNAL COMMENT eCWMed> FULL REPORT IN LAB NOTES (eCW and Medent).; Status: F Test: URINE CULTURE; Value: URINE CULTURE RESULT NO GROWTH; Status: F Lab Order: Complete Comphrensive Metabolic; SPEC'M 10/28/16 11:34 Test: GLUCOSE, FASTING; Value: 95; Range: 70-105; Units: MG/DL; Status: F Test: BLOOD UREA NITROGEN; Value: 9; Range: 7-18; Units: MG/DL; Status: F Test: CREATININE FOR GFR; Value: 0.71; Range: 0.55-1.02; Units: MG/DL; Status: F Test: SODIUM LEVEL; Value: 141; Range: 136-145; Units: MEQ/L; Status: F Test: POTASSIUM SERUM; Value: 3.5; Range: 3.5-5.1; Units: MEQ/L; Status: F Test: CHLORIDE LEVEL; Value: 107; Range: 98-107; Units: MEQ/L; Status: F Test: CARBON DIOXIDE LEVEL; Value: 26; Range: 21-32; Units: MEQ/L; Status: F Test: ANION GAP; Value: 8; Range: 8-16; Units: MEQ/L; Status: F Test: CALCIUM LEVEL; Value: 8.5; Range: 8.5-10.1; Units: MG/DL; Status: F Test: AST/SGOT; Value: 13; Range: 15-37; Abnormal: Below low normal; Units: U/L; Status: F Test: ALT/SGPT; Value: 13; Range: 12-78; Units: U/L; Status: F Test: ALKALINE PHOSPHATASE; Value: 62; Range: 45-117; Units: U/L; Status: F Test: BILIRUBIN,TOTAL; Value: 1.3; Range: 0.2-1.0; Abnormal: Above high normal; Units: MG/DL; Status: F Test: TOTAL PROTEIN; Value: 7.5; Range: 6.4-8.2; Units: GM/DL; Status: F Test: ALBUMIN; Value: 3.9; Range: 3.2-5.2; Units: GM/DL; Status: F Test: ALBUMIN/GLOBULIN RATIO; Value: 1.08; Range: 1.00-1.93; Status: F Lab Order: URINALYSIS MANUAL; SPEC'M 10/28/16 11:27 Test: APPEARANCE, URINE MANUAL; Value: TURBID; Range: CLEAR; Abnormal: Above high normal; Status: F Test: COLOR, URINE MANUAL; Value: RED; Range: YELLOW; Abnormal: Above high normal; Status: F Test: PH,URINE MAN; Value: 6.0; Range: 5.0 - 9.0; Units: UNITS; Status: F Test: SPECIFIC GRAVITY,URINE MANUAL; Value: 1.015; Range: 1.002-1.035; Status: F Test: PROTEIN, URINE MANUAL; Value: 3+; Range: NEGATIVE; Abnormal: Above high normal; Units: mg/dL; Status: F Test: GLUCOSE, URINE (UA) MANUAL; Value: NEGATIVE; Range: NEGATIVE; Units: mg/dL; Status: F Test: KETONE, URINE MANUAL; Value: NEGATIVE; Range: NEGATIVE; Units: mg/dL; Status: F Test: UROBILINOGEN, URINE MANUAL; Value: NORMAL; Range: NORMAL; Units: mg/dl; Status: F Test: BILIRUBIN, URINE MANUAL; Value: NEGATIVE; Range: NEGATIVE; Status: F Test: NITRITE, URINE MANUAL; Value: NEGATIVE; Range: NEGATIVE; Status: F Test: LEUKOCYTE ESTERASE, URINE MAN; Value: TRACE; Range: NEGATIVE; Abnormal: Above high normal; Status: F Test: BLOOD URINE MANUAL; Value: POSITIVE; Range: NEGATIVE; Abnormal: Above high normal; Status: F Lab Order: MICROSCOPIC, URINE; SPEC'M 10/28/16 11:27 Test: WBC, URINE; Value: 0-1; Range: 0-3; Units: /hpf; Status: F Test: RBC, URINE; Value: TNTC; Range: 0-3; Abnormal: Above high normal; Units: /hpf; Status: F Test: SQUAMOUS EPITHELIAL CELL URINE; Value: SMALL AMOUNT; Range: SMALL AMT; Units: /hpf; Status: F Test: BACTERIA, URINE; Value: NONE SEEN; Range: NONE; Status: F Test: HYALINE CAST, URINE; Value: NONE SEEN; Range: 0-1; Units: /lpf; Status: F Test: MICROSCOPIC EXAM; Value: PERFORMED; Status: F Lab Order: ANTIBODY IDENTIFICATION; SPEC'M 10/28/16 11:34 Test: ANTIBODY IDENTIFICATION; Value: Anti-D; Status: F Test Note: ; PATIENT RECEIVED RHOGAM ON 10-05-16 Radiology Order: -US Pelvic Non-Ob Complete Test: -US Pelvic Non-Ob Complete REASON FOR EXAMINATION: Pelvic Pain, post DC; PELVIC SONOGRAPHY:; ; HISTORY: Pelvic pain. Status post D and C.; ; FINDINGS: Transabdominal and transvaginal scanning are performed. Uterine; dimensions are 8.1 x 4.0 x 5.3 cm. Endometrial echo is 0.6 cm thick. There is a; small quantity of free fluid in the right adnexa. No focal uterine mass is seen.; Doppler flow is normal in both ovaries. Resistive index for the right ovary is; 0.34 for the left 0.44. There is a 1.6 x 1.3 x 0.8 cm cystic area in the right; ovary. Right ovary dimensions are 2.5 x 2.0 x 3.1 cm. Left ovary measures 2.4 x; 1.7 x 1.2 cm.; ; IMPRESSION:; ; Small hypoechoic cyst right ovary may be a hemorrhagic cyst, 1.6 cm . Small; quantity of right sided cul-de-sac fluid. Otherwise unremarkable pelvic; sonography.; ; ; Signed by; Jarrell Raymond MD 10/28/2016 02:28 P; Outcome: 14:01 Discharge ordered by Provider. ef1 14:13 Discharge Assessment: Patient awake, alert and oriented x 3. No cognitive and/or jo3 functional deficits noted. Patient verbalized understanding of disposition instructions. patient administered narcotics - no. The following High Risk Discharge criteria are identified: None. Discharged to home ambulatory, with significant other. Condition: stable. Discharge instructions given to patient, Instructed on discharge instructions, follow up and referral plans. medication usage, Demonstrated understanding of instructions, medications, Pt was receptive of discharge instructions/ teaching. Prescriptions given X 2. Ultrasound Study completed. Property sent home with patient. 14:14 Patient left the ED. jo3 Signatures: Dispatcher [employer] EDMS Madison Rivas RN RN kpj Murphy, Jane, GLOBAL SALES EXECUTIVE GLOBAL SALES EXECUTIVE jam1 Dominga Bland, Reg Reg Adela Vásquez RN RN jo3 Cielo Buckley, PA-C PA-C ef1 Gisela SkinnerRN Sharon Miner Kathie klr Ross, Laura lr2 Chart Complete MTDD
== END 2016-10-28 14:14 | disposition home or self-care (01) ==
LOC: M ED 10:51
DX: N83.291 Other ovarian cyst, right side (principal); N93.8 Other specified abnormal uterine and vaginal bleeding; D64.9 Anemia, unspecified; R10.2 Pelvic and perineal pain
CPT/HCPCS: 36415; 76830; 76856; 80053; 81000; 85027; 86850; 86870; 86900; 86901; 87086; 93976; 96361; 96365; 99284; J2765

== ENCOUNTER 2016-10-30 19:46 | Emergency (ER) | payer OTHER ==
[2016-10-30 20:53] LABS: MEAN CORPUSCULAR HEMOGLOBIN 30.2 pg (27.0-33.0); MEAN CORPUSCULAR VOLUME 91.5 fl (80.0-96.0); RED CELL DISTRIBUTION WIDTH 12.4 % (11.5-14.5); WHITE BLOOD COUNT 4.1 K/mm3 (4.0-10.0)
--- NOTE | 2016-10-30 21:50 | REPUSA ---
Clinical history: Pain. Bleeding. Findings: Real-time transabdominal and transvaginal ultrasound images of the pelvis were obtained. An anteverted uterus is noted, measuring 8.1 x 4.0 x 5.3 cm. The uterus demonstrates normal echotexture and echogenicity. The endometrial stripe measures 6 mm and is within normal limits. The right ovary measures 2.5 x 1.9 x 2.6 cm. There is a 1.3 x 1.1 x 1.3 cm right ovarian cyst. The left ovary measure s 3.4 x 2.2 x 1.2 cm. No adnexal masses are seen. Color Doppler flow is seen within both ovaries. The re is a small on of free fluid in the right adnexa. The urinary bladder is unremarkable. Impression: 1. Unremarkable ultrasound examination of the uterus. 2. Hemorrhagic right ovarian cyst. 3. Small amount of free fluid in the right adnexa.
--- NOTE | 2016-10-31 00:09 | EDDOCDS ---
Physician Documentation [facility] Name: Charlene Zazueta Age: 20 yrs Sex: Female : 1995 Arrival Date: 10/30/2016 Time: 19:46 Bed I4 / M4 Private MD: Mario Alberto Hirsch S Disposition: 10/30/16 23:57 Discharged to Home/Self Care. Impression: Other ovarian cysts - Right, Other specified abnormal uterine and vaginal bleeding - S/P D&C 10/05/16. - Condition is Stable. - Discharge Instructions: Ovarian Cyst, [id number], Abnormal Uterine Bleeding, [id number]. - Medication Reconciliation, Local Pharmacy Hours form. - Follow up: [facility] [place]; When: Tomorrow; Reason: Further diagnostic work-up, Recheck today's complaints, Continuance of care. Follow up: Emergency Department; Reason: Worsening of conditions. - Problem is new. - Symptoms have improved. Historical: - Allergies: No known drug Allergies; - Home Meds: 1. naproxen 500 mg Oral tab 1 tab 2 times per day - PMHx: none; - PSHx: D & C; - Social history: Smoking status: Patient states was never smoker of tobacco. No barriers to communication noted, The patient speaks fluent Ukrainian, Speaks appropriately for age. - Family history: Not pertinent. - : The pt / caregiver states he / she is not on anticoagulants. Home medication list is obtained from the patient. - Exposure Risk Screening:: None identified. 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 Vital Signs: 19:48 BP 113 / 73; Pulse 80; Resp 16; Temp 98.6(O); Pulse Ox 100% on R/A; Weight 65.77 kg / dem1 145 lbs (R); Height 5 ft. 6 in. (167.64 cm) (R); Pain 0/10; 23:59 BP 111 / 71; Pulse 67; Resp 18; Temp 98; Pulse Ox 99% ; Pain 0/10; ajs 19:48 Body Mass Index 23.40 (65.77 kg, 167.64 cm) dem1 MDM: 20:14 IV Saline Lock ordered. ef1 20:14 Undress patient appropriately for examination ordered. ef1 20:14 NS 0.9% 1000 ml IV at bolus once ordered. ef1 20:15 Complete Blood Count Ordered. EDMS 20:16 -US Pelvic Non-Ob Complete Ordered. EDMS 20:16 DUPLEX SCAN LIMITED (DOPPLER)+US Ordered. EDMS 20:32 Transvaginal NON- US Ordered. EDMS 21:05 Financial registration complete. zo 21:25 Complete Blood Count Reviewed. ef1 21:42 [facility] Payment Agreement was scanned into [employer] and attached to record. zo 23:38 Set up pelvic ordered. ef1 23:54 Hcg, Serum Quantitative Ordered. EDMS Administered Medications: 20:41 Drug: NS 0.9% 1000 ml [sodium chloride 0.9 % injection solution] Route: IV; Rate: jf3 bolus; Site: right antecubital; 23:53 Follow up: IV Status: Completed infusion; IV Intake: 1000ml slm Signatures: Dispatcher [employer] EDMS Eufemia Orosco Erica, DEMETRIA PA-C ef1 Anam DoddRN RN Franck Winchester,RN RN jf3 Bria Tyler LPN [facility] The chart was reviewed and I authenticate all verbal orders and agree with the evaluation and treatment provided.Corrections: (The following items were deleted from the chart) 23:59 19:54 Home Meds: Unknown; walker cardoso Attachments: 21:42 [facility] Payment Agreement zo MTDD
--- NOTE | 2016-10-31 00:09 | EDDOCDS ---
Nurse's Notes [facility] Name: Charlene Zazueta Age: 20 yrs Sex: Female : 1995 Arrival Date: 10/30/2016 Time: 19:46 Bed I4 / M4 Private MD: Mario Alberto Hirsch S Diagnosis: Other ovarian cysts-Right;Other specified abnormal uterine and vaginal bleeding-S/P D&C 10/05/16 Presentation: 10/30 19:52 Presenting complaint: Patient states: Patient reports being seen on Sunday for D&C, jmb bleeding concerns. Patient reports bleeding is currently heavy. Patient reports two pads per hour. Adult Sepsis Screening: The patient does not have new or worsening altered mentation. Patient's respiratory rate is less than 22. Systolic blood pressure is greater than 100. Patient has a qSOFA score of 0- Negative Sepsis Screen. Suicide/Homicide risk assessment- the patient denies having any suicidal and/or homicidal ideations and does not present with any other emotional, behavioral or mental health complaints. Status: The patient is a dependent. Transition of care: patient was not received from another setting of care. 19:52 Acuity: CHRISTIANO Level 3 b 19:52 Method Of Arrival: Walkin/Carried/[facility] Triage Assessment: 19:54 General: Appears in no apparent distress, comfortable, Behavior is appropriate for age, jmb cooperative. Pain: Denies pain. HIV screening NA for this visit Offered previously. Neurological: Level of Consciousness is awake, alert, obeys commands, Oriented to person, place, time, Speech is normal, Facial symmetry appears normal, Facial symmetry: tongue is midline. Respiratory: Airway is patent Respiratory effort is even, unlabored, Respiratory pattern is regular, symmetrical. Derm: Skin is normal. 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 naproxen 500 mg Oral tab 1 tab 2 times per day - PMHx: none; - PSHx: D & C; - Social history: Smoking status: Patient states was never smoker of tobacco. No barriers to communication noted, The patient speaks fluent Greenlandic, Speaks appropriately for age. - Family history: Not pertinent. - : The pt / caregiver states he / she is not on anticoagulants. Home medication list is obtained from the patient. - Exposure Risk Screening:: None identified. Screenin:41 Screening information is obtained from the patient. Fall risk: No risks identified. jf3 Assistance ADL's: requires no assistance with activities of daily living. Abuse/DV Screen: The patient / caregiver reports he/she is: not in a situation that causes fear, pain or injury. Nutritional screening: No deficits noted. Advance Directives: Currently, there is no health care proxy. There is no active DNR order. home support is adequate. Assessment: 20:41 Adult Sepsis Screening: The patient does not have new or worsening altered mentation. jf3 Patient's respiratory rate is less than 22. Systolic blood pressure is greater than 100. Patient has a qSOFA score of 0- Negative Sepsis Screen. General: Appears in no apparent distress, comfortable, Behavior is appropriate for age, cooperative. Pain: Denies pain. Neurological: Level of Consciousness is awake, alert, Oriented to person, place, time. Cardiovascular: Capillary refill < 3 seconds Heart tones S1 S2 present Chest pain is denied. Respiratory: Airway is patent Respiratory effort is even, unlabored, Respiratory pattern is regular, symmetrical, Breath sounds are clear bilaterally. Denies shortness of breath. GI: Abdomen is flat, non- distended Bowel sounds present X 4 quads. Abd is soft and non tender X 4 quads. : Reports vaginal bleeding that is heavy flow. Derm: Skin is normal. 23:00 General: Appears in no apparent distress, comfortable, Behavior is appropriate for age, jmb cooperative. Neurological: Level of Consciousness is awake, alert, obeys commands, Oriented to person, place, time, Speech is normal, Facial symmetry appears normal, Facial symmetry: tongue is midline. Respiratory: Airway is patent Respiratory effort is even, unlabored, Respiratory pattern is regular, symmetrical. 10/31 00:06 General: Patient instructed on discharge instructions. Patient asked if there were any jmb questions regarding discharge, patient stated no. IV discontinued per hospital policy. Patient signed discharge instructions. Patient discharged in stable condition. . Vital Signs: 10/30 19:48 BP 113 / 73; Pulse 80; Resp 16; Temp 98.6(O); Pulse Ox 100% on R/A; Weight 65.77 kg dem1 (R); Height 5 ft. 6 in. (167.64 cm) (R); Pain 0/10; 23:59 BP 111 / 71; Pulse 67; Resp 18; Temp 98; Pulse Ox 99% ; Pain 0/10; ajs 19:48 Body Mass Index 23.40 (65.77 kg, 167.64 cm) [facility] Vitals: 19:48 Log In Time: October 30, 2016 at 19:45. [facility] ED Course: 19:47 Patient visited by Felicia Weber. dem1 19:47 Mario Alberto Hirsch is Private Physician. dem1 19:47 Patient moved to Waiting dem1 19:49 Patient moved to Pre RCE dem1 19:53 Triage Initiated jmb 20:13 Cielo Buckley PA-C is PHCP. ef1 20:13 Brian Ortiz DO is Attending Physician. ef1 20:22 Patient moved to I4 / M4 kc3 20:26 Patient visited by Cielo Buckley PA-C. ef1 20:41 The patient / caregiver is instructed regarding the plan of care and ED course. jf3 20:41 Complete Blood Count Sent. jf3 20:41 Inserted saline lock: 20 gauge in right antecubital area The patient tolerated the jf3 procedure well. 20:42 Patient visited by Franck Hannah,EMELYN. jf3 20:54 Patient moved to Ultrasound hgl 21:36 Patient moved to I4 / M4 hgl 21:42 Patient visited by Cielo Buckley PA-C. ef1 21:42 [facility] Payment Agreement was scanned into [employer] and attached to record. zo 22:32 Patient visited by Cielo Buckley PA-C. ef1 22:40 -US Pelvic Non-Ob Complete Returned. EDMS 23:03 Patient visited by Cielo Buckley PA-C. ef1 23:26 Patient visited by Cielo Buckley PA-C. ef1 23:52 Patient visited by Cielo Buckley PA-C. ef1 23:52 Assist provider with pelvic exam: Set up pelvic tray. Patient tolerated well. slm 23:57 [place], OB is Referral Physician. ef1 23:57 Hcg, Serum Quantitative Sent. ajs 02 00:01 Patient visited by Alicia Feliciano. ajs 00:07 Discontinued lock intact, bleeding controlled, pressure dressing applied, No jmb redness/swelling at site. Administered Medications: 10/30 20:41 Drug: NS 0.9% 1000 ml [sodium chloride 0.9 % injection solution] Route: IV; Rate: jf3 bolus; Site: right antecubital; 23:53 Follow up: IV Status: Completed infusion; IV Intake: 1000ml slm Intake: 23:53 IV: 1000.00ml; Total: 1000.00ml. slm Order Results: Lab Order: Complete Blood Count; SPEC'M 10/30/16 20:38 Test: WHITE BLOOD COUNT; Value: 4.1; Range: 4.0-10.0; Units: K/mm3; Status: F Test: RED BLOOD COUNT; Value: 3.20; Range: 4.00-5.40; Abnormal: Below low normal; Units: M/mm3; Status: F Test: HEMOGLOBIN; Value: 9.7; Range: 12.0-16.0; Abnormal: Below low normal; Units: g/dl; Status: F Test: HEMATOCRIT; Value: 29.3; Range: 36.0-47.0; Abnormal: Below low normal; Units: %; Status: F Test: MEAN CORPUSCULAR VOLUME; Value: 91.5; Range: 80.0-96.0; Units: fl; Status: F Test: MEAN CORPUSCULAR HEMOGLOBIN; Value: 30.2; Range: 27.0-33.0; Units: pg; Status: F Test: MEAN CORPUSCULAR HGB CONC; Value: 33.0; Range: 32.0-36.5; Units: g/dl; Status: F Test: RED CELL DISTRIBUTION WIDTH; Value: 12.4; Range: 11.5-14.5; Units: %; Status: F Test: PLATELET COUNT, AUTOMATED; Value: 171; Range: 150-450; Units: k/mm3; Status: F Radiology Order: -US Pelvic Non-Ob Complete Test: -US Pelvic Non-Ob Complete REASON FOR EXAMINATION: post dc bleeding; ; Clinical history: Pain. Bleeding.; Findings: Real-time transabdominal and transvaginal ultrasound images of the pelvis were obtained. An; anteverted uterus is noted, measuring 8.1 x 4.0 x 5.3 cm. The uterus demonstrates normal echotexture; and echogenicity. The endometrial stripe measures 6 mm and is within normal limits. The right ovary; measures 2.5 x 1.9 x 2.6 cm. There is a 1.3 x 1.1 x 1.3 cm right ovarian cyst. The left ovary measure; s 3.4 x 2.2 x 1.2 cm. No adnexal masses are seen. Color Doppler flow is seen within both ovaries. The; re is a small on of free fluid in the right adnexa. The urinary bladder is unremarkable.; Impression:; 1. Unremarkable ultrasound examination of the uterus.; 2. Hemorrhagic right ovarian cyst.; 3. Small amount of free fluid in the right adnexa.; ; Outcome: 23:57 Discharge ordered by Provider. ef1 10/31 00:07 Discharge Assessment: Patient awake, alert and oriented x 3. No cognitive and/or jmb functional deficits noted. Patient verbalized understanding of disposition instructions. Patient awake and alert. obeys commands, Oriented to person, place and time. Patient verbalized understanding of disposition instructions. Patient has no functional deficits. patient administered narcotics - no. The following High Risk Discharge criteria are identified: None. Discharged to home ambulatory, with significant other. Condition: stable Condition: improved. Discharge instructions given to patient, Instructed on discharge instructions, follow up and referral plans. Demonstrated understanding of instructions, Pt was receptive of discharge instructions/ teaching. No special radiology studies were completed. Property sent home with patient. 00:08 Patient left the ED. walker Signatures: Dispatcher [employer] EDMS Eufemia Orosco Erica, PA-C PATen ef1 lAicia Feliciano Demeishia dem1 Ly, Huy hgl Becker, JoshuaRN RN Bria Ramirez LPN LPN slm Crane, Kelsi, RN RN [email or web address] Franck Hannah,EMELYN RN [email or web address] Corrections: (The following items were deleted from the chart) 10/30 23:52 20:41 No procedures done that require assistance jozef ruiz 23:59 19:54 Home Meds: Unknown; walker cardoso MTDD
--- NOTE | 2016-11-02 01:09 | EDDOCDS ---
Physician Documentation [facility] Name: Charlene Zazueta Age: 20 yrs Sex: Female : 1995 Arrival Date: 10/30/2016 Time: 19:46 Bed I4 / M4 Private MD: Mario Alberto Hirsch S Disposition: 10/30/16 23:57 Discharged to Home/Self Care. Impression: Other ovarian cysts - Right, Other specified abnormal uterine and vaginal bleeding - S/P D&C 10/05/16. - Condition is Stable. - Discharge Instructions: Ovarian Cyst, [id number], Abnormal Uterine Bleeding, [id number]. - Medication Reconciliation, Local Pharmacy Hours form. - Follow up: [facility] [place]; When: Tomorrow; Reason: Further diagnostic work-up, Recheck today's complaints, Continuance of care. Follow up: Emergency Department; Reason: Worsening of conditions. - Problem is new. - Symptoms have improved. Historical: - Allergies: No known drug Allergies; - Home Meds: 1. naproxen 500 mg Oral tab 1 tab 2 times per day - PMHx: none; - PSHx: D & C; - Social history: Smoking status: Patient states was never smoker of tobacco. No barriers to communication noted, The patient speaks fluent Frisian, Speaks appropriately for age. - Family history: Not pertinent. - : The pt / caregiver states he / she is not on anticoagulants. Home medication list is obtained from the patient. - Exposure Risk Screening:: None identified. 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 6 in. (167.64 cm) (R); Pain 0/10; 23:59 BP 111 / 71; Pulse 67; Resp 18; Temp 98; Pulse Ox 99% ; Pain 0/10; ajs 19:48 Body Mass Index 23.40 (65.77 kg, 167.64 cm) dem1 MDM: 20:14 IV Saline Lock ordered. ef1 20:14 Undress patient appropriately for examination ordered. ef1 20:14 NS 0.9% 1000 ml IV at bolus once ordered. ef1 20:15 Complete Blood Count Ordered. EDMS 20:16 -US Pelvic Non-Ob Complete Ordered. EDMS 20:16 DUPLEX SCAN LIMITED (DOPPLER)+US Ordered. EDMS 20:32 Transvaginal NON- US Ordered. EDMS 21:05 Financial registration complete. zo 21:25 Complete Blood Count Reviewed. ef1 21:42 [facility] Agreement was scanned into [employer] and attached to record. zo 23:38 Set up pelvic ordered. ef1 23:54 Hcg, Serum Quantitative Ordered. EDMS 10/31 11:14 T-Sheet-- Draft Copy was scanned into [employer] and attached to record. gb 11:15 Radiology Report was scanned into [employer] and attached to record. gb Administered Medications: 10/30 20:41 Drug: NS 0.9% 1000 ml [sodium chloride 0.9 % injection solution] Route: IV; Rate: jf3 bolus; Site: right antecubital; 23:53 Follow up: IV Status: Completed infusion; IV Intake: 1000ml slm Signatures: Dispatcher [employer] EDMS Sabra Brush, Reg Reg gb Bell Buckle, Mishann Cielo Lee, PA-C PA-C ef1 Anam Dodd,RN RN Franck Winchester,RN RN jf3 Bria Tyler LPN [facility] The chart was reviewed and I authenticate all verbal orders and agree with the evaluation and treatment provided.Corrections: (The following items were deleted from the chart) 23:59 19:54 Home Meds: Unknown; walker cardoso Attachments: 21:42 [facility] Payment Agreement zo 10/31 11:14 T-Sheet-- Draft Copy gb Chart Complete MTDD
--- NOTE | 2016-11-02 01:09 | EDDOCDS ---
Physician Documentation [facility] Name: Charlene Zazueta Age: 20 yrs Sex: Female : 1995 Arrival Date: 10/30/2016 Time: 19:46 Bed I4 / M4 Private MD: Mario Alberto Hirsch S Disposition: 10/30/16 23:57 Discharged to Home/Self Care. Impression: Other ovarian cysts - Right, Other specified abnormal uterine and vaginal bleeding - S/P D&C 10/05/16. - Condition is Stable. - Discharge Instructions: Ovarian Cyst, [id number], Abnormal Uterine Bleeding, [id number]. - Medication Reconciliation, Local Pharmacy Hours form. - Follow up: [facility] [place]; When: Tomorrow; Reason: Further diagnostic work-up, Recheck today's complaints, Continuance of care. Follow up: Emergency Department; Reason: Worsening of conditions. - Problem is new. - Symptoms have improved. Historical: - Allergies: No known drug Allergies; - Home Meds: 1. naproxen 500 mg Oral tab 1 tab 2 times per day - PMHx: none; - PSHx: D & C; - Social history: Smoking status: Patient states was never smoker of tobacco. No barriers to communication noted, The patient speaks fluent Kazakh, Speaks appropriately for age. - Family history: Not pertinent. - : The pt / caregiver states he / she is not on anticoagulants. Home medication list is obtained from the patient. - Exposure Risk Screening:: None identified. 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 6 in. (167.64 cm) (R); Pain 0/10; 23:59 BP 111 / 71; Pulse 67; Resp 18; Temp 98; Pulse Ox 99% ; Pain 0/10; ajs 19:48 Body Mass Index 23.40 (65.77 kg, 167.64 cm) dem1 MDM: 20:14 IV Saline Lock ordered. ef1 20:14 Undress patient appropriately for examination ordered. ef1 20:14 NS 0.9% 1000 ml IV at bolus once ordered. ef1 20:15 Complete Blood Count Ordered. EDMS 20:16 -US Pelvic Non-Ob Complete Ordered. EDMS 20:16 DUPLEX SCAN LIMITED (DOPPLER)+US Ordered. EDMS 20:32 Transvaginal NON- US Ordered. EDMS 21:05 Financial registration complete. zo 21:25 Complete Blood Count Reviewed. ef1 21:42 [facility] [place] was scanned into [employer] and attached to record. zo 23:38 Set up pelvic ordered. ef1 23:54 Hcg, Serum Quantitative Ordered. EDMS 10/31 11:14 T-Sheet-- Draft Copy was scanned into [employer] and attached to record. gb 11:15 Radiology Report was scanned into [employer] and attached to record. gb Administered Medications: 10/30 20:41 Drug: NS 0.9% 1000 ml [sodium chloride 0.9 % injection solution] Route: IV; Rate: jf3 bolus; Site: right antecubital; 23:53 Follow up: IV Status: Completed infusion; IV Intake: 1000ml slm Signatures: Dispatcher [employer] EDMS Sabra Brush, Reg Reg gb Hampton, Mishann Cielo Lee, PA-C PA-C ef1 Anam Dodd,RN RN Franck Winchester,RN RN jf3 Bria Tyler LPN [facility] The chart was reviewed and I authenticate all verbal orders and agree with the evaluation and treatment provided.Corrections: (The following items were deleted from the chart) 23:59 19:54 Home Meds: Unknown; walker cardoso Attachments: 21:42 [facility] Payment Agreement zo 10/31 11:14 T-Sheet-- Draft Copy gb Chart Complete MTDD
--- NOTE | 2016-11-02 01:09 | EDDOCDS ---
Nurse's Notes [facility] Name: Charlene Zazueta Age: 20 yrs Sex: Female : 1995 Arrival Date: 10/30/2016 Time: 19:46 Bed I4 / M4 Private MD: Mario Alberto Hirsch S Diagnosis: Other ovarian cysts-Right;Other specified abnormal uterine and vaginal bleeding-S/P D&C 10/05/16 Presentation: 10/30 19:52 Presenting complaint: Patient states: Patient reports being seen on Sunday for D&C, jmb bleeding concerns. Patient reports bleeding is currently heavy. Patient reports two pads per hour. Adult Sepsis Screening: The patient does not have new or worsening altered mentation. Patient's respiratory rate is less than 22. Systolic blood pressure is greater than 100. Patient has a qSOFA score of 0- Negative Sepsis Screen. Suicide/Homicide risk assessment- the patient denies having any suicidal and/or homicidal ideations and does not present with any other emotional, behavioral or mental health complaints. Status: The patient is a dependent. Transition of care: patient was not received from another setting of care. 19:52 Acuity: CHRISTIANO Level 3 b 19:52 Method Of Arrival: Walkin/Carried/Asstd [facility] Triage Assessment: 19:54 General: Appears in no apparent distress, comfortable, Behavior is appropriate for age, jmb cooperative. Pain: Denies pain. HIV screening NA for this visit Offered previously. Neurological: Level of Consciousness is awake, alert, obeys commands, Oriented to person, place, time, Speech is normal, Facial symmetry appears normal, Facial symmetry: tongue is midline. Respiratory: Airway is patent Respiratory effort is even, unlabored, Respiratory pattern is regular, symmetrical. Derm: Skin is normal. 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 naproxen 500 mg Oral tab 1 tab 2 times per day - PMHx: none; - PSHx: D & C; - Social history: Smoking status: Patient states was never smoker of tobacco. No barriers to communication noted, The patient speaks fluent Welsh, Speaks appropriately for age. - Family history: Not pertinent. - : The pt / caregiver states he / she is not on anticoagulants. Home medication list is obtained from the patient. - Exposure Risk Screening:: None identified. Screenin:41 Screening information is obtained from the patient. Fall risk: No risks identified. jf3 Assistance ADL's: requires no assistance with activities of daily living. Abuse/DV Screen: The patient / caregiver reports he/she is: not in a situation that causes fear, pain or injury. Nutritional screening: No deficits noted. Advance Directives: Currently, there is no health care proxy. There is no active DNR order. home support is adequate. Assessment: 20:41 Adult Sepsis Screening: The patient does not have new or worsening altered mentation. jf3 Patient's respiratory rate is less than 22. Systolic blood pressure is greater than 100. Patient has a qSOFA score of 0- Negative Sepsis Screen. General: Appears in no apparent distress, comfortable, Behavior is appropriate for age, cooperative. Pain: Denies pain. Neurological: Level of Consciousness is awake, alert, Oriented to person, place, time. Cardiovascular: Capillary refill < 3 seconds Heart tones S1 S2 present Chest pain is denied. Respiratory: Airway is patent Respiratory effort is even, unlabored, Respiratory pattern is regular, symmetrical, Breath sounds are clear bilaterally. Denies shortness of breath. GI: Abdomen is flat, non- distended Bowel sounds present X 4 quads. Abd is soft and non tender X 4 quads. : Reports vaginal bleeding that is heavy flow. Derm: Skin is normal. 23:00 General: Appears in no apparent distress, comfortable, Behavior is appropriate for age, jmb cooperative. Neurological: Level of Consciousness is awake, alert, obeys commands, Oriented to person, place, time, Speech is normal, Facial symmetry appears normal, Facial symmetry: tongue is midline. Respiratory: Airway is patent Respiratory effort is even, unlabored, Respiratory pattern is regular, symmetrical. 10/31 00:06 General: Patient instructed on discharge instructions. Patient asked if there were any jmb questions regarding discharge, patient stated no. IV discontinued per hospital policy. Patient signed discharge instructions. Patient discharged in stable condition. . Vital Signs: 10/30 19:48 BP 113 / 73; Pulse 80; Resp 16; Temp 98.6(O); Pulse Ox 100% on R/A; Weight 65.77 kg dem1 (R); Height 5 ft. 6 in. (167.64 cm) (R); Pain 0/10; 23:59 BP 111 / 71; Pulse 67; Resp 18; Temp 98; Pulse Ox 99% ; Pain 0/10; ajs 19:48 Body Mass Index 23.40 (65.77 kg, 167.64 cm) [facility] Vitals: 19:48 Log In Time: October 30, 2016 at 19:45. [facility] ED Course: 19:47 Patient visited by Felicia Weber. dem1 19:47 Mario Alberto Hirsch is Private Physician. dem1 19:47 Patient moved to Waiting dem1 19:49 Patient moved to Pre RCE dem1 19:53 Triage Initiated jmb 20:13 Cielo Buckley PA-C is PHCP. ef1 20:13 Brian Ortiz DO is Attending Physician. ef1 20:22 Patient moved to I4 / M4 kc3 20:26 Patient visited by Cielo Buckley PA-C. ef1 20:41 The patient / caregiver is instructed regarding the plan of care and ED course. jf3 20:41 Complete Blood Count Sent. jf3 20:41 Inserted saline lock: 20 gauge in right antecubital area The patient tolerated the jf3 procedure well. 20:42 Patient visited by Franck Hannah,EMELYN. jf3 20:54 Patient moved to Ultrasound hgl 21:36 Patient moved to I4 / M4 hgl 21:42 Patient visited by Cielo Buckley PA-C. ef1 21:42 [facility] Payment Agreement was scanned into [employer] and attached to record. zo 22:32 Patient visited by Cielo Buckley PA-C. ef1 22:40 -US Pelvic Non-Ob Complete Returned. EDMS 23:03 Patient visited by Cileo Buckley PA-C. ef1 23:26 Patient visited by Cielo Buckley PA-C. ef1 23:52 Patient visited by Cielo Buckley PA-C. ef1 23:52 Assist provider with pelvic exam: Set up pelvic tray. Patient tolerated well. slm 23:57 Pendroy, OB is Referral Physician. ef1 23:57 Hcg, Serum Quantitative Sent. ajs 02 00:01 Patient visited by Alicia Feliciano. ajs 00:07 Discontinued lock intact, bleeding controlled, pressure dressing applied, No jmb redness/swelling at site. 11:14 T-Sheet-- Draft Copy was scanned into [employer] and attached to record. cj 11:15 Radiology Report was scanned into [employer] and attached to record. gb Administered Medications: 10/30 20:41 Drug: NS 0.9% 1000 ml [sodium chloride 0.9 % injection solution] Route: IV; Rate: jf3 bolus; Site: right antecubital; 23:53 Follow up: IV Status: Completed infusion; IV Intake: 1000ml slm Intake: 23:53 IV: 1000.00ml; Total: 1000.00ml. slm Order Results: Lab Order: Complete Blood Count; SPEC'M 10/30/16 20:38 Test: WHITE BLOOD COUNT; Value: 4.1; Range: 4.0-10.0; Units: K/mm3; Status: F Test: RED BLOOD COUNT; Value: 3.20; Range: 4.00-5.40; Abnormal: Below low normal; Units: M/mm3; Status: F Test: HEMOGLOBIN; Value: 9.7; Range: 12.0-16.0; Abnormal: Below low normal; Units: g/dl; Status: F Test: HEMATOCRIT; Value: 29.3; Range: 36.0-47.0; Abnormal: Below low normal; Units: %; Status: F Test: MEAN CORPUSCULAR VOLUME; Value: 91.5; Range: 80.0-96.0; Units: fl; Status: F Test: MEAN CORPUSCULAR HEMOGLOBIN; Value: 30.2; Range: 27.0-33.0; Units: pg; Status: F Test: MEAN CORPUSCULAR HGB CONC; Value: 33.0; Range: 32.0-36.5; Units: g/dl; Status: F Test: RED CELL DISTRIBUTION WIDTH; Value: 12.4; Range: 11.5-14.5; Units: %; Status: F Test: PLATELET COUNT, AUTOMATED; Value: 171; Range: 150-450; Units: k/mm3; Status: F Lab Order: Hcg, Serum Quantitative; SPEC'M 10/30/16 20:38 Test: HCG, SERUM QUANTITATIVE; Value: 9; Units: MIU/ML; Status: F Test Note: ; GESTATIONAL AGE APPROXIMATE HCG RANGE (MIU/ML) 0.2-1 WEEK 5-50 1-2 WEEKS 50-500 2-3 WEEKS 100-5,000 3-4 WEEKS 500-10,000 4-5 WEEKS 1,000-50,000 5-6 WEEKS 10,000-100,000 6-8 WEEKS 15,000-200,000 2-3 MONTHS 10,000-100,000 NON FEMALES LESS THAN 3.0 Patient samples may contain human heterophilic antibodies that could react with immunoassays to give falsely elevated or depressed results. This assay has been designed to minimize interference from heterophilic antibodies. Elevated hCG levels have also been associated with trophoblastic disease and nontrophoblastic neoplasms. The possibility of having these diseases should be considered before a diagnosis of is made. This test is not intended for use as a surrogate marker for aiding in the diagnosis or monitoring the treatment of cancer patients. [employer] methodology. Radiology Order: -US Pelvic Non-Ob Complete Test: -US Pelvic Non-Ob Complete REASON FOR EXAMINATION: post dc bleeding; ; Clinical history: Pain. Bleeding.; Findings: Real-time transabdominal and transvaginal ultrasound images of the pelvis were obtained. An; anteverted uterus is noted, measuring 8.1 x 4.0 x 5.3 cm. The uterus demonstrates normal echotexture; and echogenicity. The endometrial stripe measures 6 mm and is within normal limits. The right ovary; measures 2.5 x 1.9 x 2.6 cm. There is a 1.3 x 1.1 x 1.3 cm right ovarian cyst. The left ovary measure; s 3.4 x 2.2 x 1.2 cm. No adnexal masses are seen. Color Doppler flow is seen within both ovaries. The; re is a small on of free fluid in the right adnexa. The urinary bladder is unremarkable.; Impression:; 1. Unremarkable ultrasound examination of the uterus.; 2. Hemorrhagic right ovarian cyst.; 3. Small amount of free fluid in the right adnexa.; ; Outcome: 23:57 Discharge ordered by Provider. ef1 10/31 00:07 Discharge Assessment: Patient awake, alert and oriented x 3. No cognitive and/or jmb functional deficits noted. Patient verbalized understanding of disposition instructions. Patient awake and alert. obeys commands, Oriented to person, place and time. Patient verbalized understanding of disposition instructions. Patient has no functional deficits. patient administered narcotics - no. The following High Risk Discharge criteria are identified: None. Discharged to home ambulatory, with significant other. Condition: stable Condition: improved. Discharge instructions given to patient, Instructed on discharge instructions, follow up and referral plans. Demonstrated understanding of instructions, Pt was receptive of discharge instructions/ teaching. No special radiology studies were completed. Property sent home with patient. 00:08 Patient left the ED. walker Signatures: Dispatcher [employer] EDMS Sabra Brush, Eufemia Jacobsen Erica, PA-C PADee DeeC ef1 Braden, Felicia Adam1 Ly, Samuel hgl Anam Dodd,RN RN Bria Ramirez LPN LPN Karla Otero,RN RN kc3 Franck Hannah,RN RN jf3 Corrections: (The following items were deleted from the chart) 10/30 23:52 20:41 No procedures done that require assistance jozef ruiz 23:59 19:54 Home Meds: Unknown; walker cardoso Chart Complete THAID
== END 2016-10-31 00:08 | disposition home or self-care (01) ==
LOC: M ED 19:46
DX: N83.291 Other ovarian cyst, right side (principal); N93.9 Abnormal uterine and vaginal bleeding, unspecified; Z79.899 Other long term (current) drug therapy

== ENCOUNTER 2017-02-11 15:23 | Emergency (ER) | payer OTHER ==
[~2017-02-11] VITALS: Ht 167.6 cm; Wt 47.6 kg
[2017-02-11 15:24] VITALS: BP 129/73
[2017-02-11 16:00] LABS: BASO % 0.6 % (0.0-1.0); EOS % 1.4 % (0.0-3.0); LARGE UNSTAINED CELL # 0.1 K/mm3 (0.0-0.4); LARGE UNSTAINED CELL % 2.5 % (0.0-4.0); LYMPH # 1.5 K/mm3 (1.5-6.5); LYMPH % 40.3 % (24.0-44.0); MEAN CORPUSCULAR HEMOGLOBIN 25.8 pg (27.0-33.0); MEAN CORPUSCULAR HGB CONC 32.7 g/dl (32.0-36.5); MONO # 0.2 K/mm3 (0.0-0.8); MONO % 5.4 % (0.0-5.0); NEUTROPHILS # 1.7 K/mm3 (1.8-7.7); NEUTROPHILS % 49.8 % (36.0-66.0); PLATELET COUNT, AUTOMATED 167 k/mm3 (150-450); RED CELL DISTRIBUTION WIDTH 16.3 % (11.5-14.5); WHITE BLOOD COUNT 3.4 K/mm3 (4.0-10.0)
== END 2017-02-11 16:36 | disposition home or self-care (01) ==
LOC: M ED 15:52
DX: D50.8 Other iron deficiency anemias (principal); Z32.01 Encounter for pregnancy test, result positive

== ENCOUNTER 2017-05-16 10:22 | Emergency (ER) | payer OTHER ==
[~2017-05-16] VITALS: Ht 167.6 cm; Wt 51.6 kg
[2017-05-16] MEDS ORDERED: PRENTAB55 PO (10:35)
[2017-05-16 12:55] VITALS: BP 108/63
--- NOTE | 2017-05-16 13:32 | REP ---
LIMITED OB ULTRASOUND: Real-time sonographic evaluation of the gravid uterus performed utilizing transabdominal and endovaginal technique to evaluate cervical length. heart rate is 144 beats per minute. position is breech. Cervical length is 4.2 cm with no evidence of funneling. Placenta is anterior with no previa. Signed by Ortega Payton MD 05/16/2017 04:44 P
== END 2017-05-16 13:04 | disposition home or self-care (01) ==
LOC: M ED 10:22
DX: O26.892 Other specified pregnancy related conditions, second trimester (principal); R10.9 Unspecified abdominal pain; Z3A.19 19 weeks gestation of pregnancy

== ENCOUNTER 2017-10-05 22:31 | Inpatient (IN) | payer OTHER ==
[2017-10-06 00:54] LABS: HEMATOCRIT 36.5 % (36.0-47.0); HEMOGLOBIN 12.4 g/dl (12.0-16.0); MEAN CORPUSCULAR HEMOGLOBIN 31.3 pg (27.0-33.0); MEAN CORPUSCULAR VOLUME 92.2 fl (80.0-96.0); PLATELET COUNT, AUTOMATED 121 10^3/uL (150-450); RED BLOOD COUNT 3.96 10^6/uL (4.00-5.40)
[2017-10-06 01:22] LABS: AMPHETAMINES URINE REFLEX NEGATIVE (NEGATIVE); BARBITURATES URINE REFLEX NEGATIVE (NEGATIVE); BENZODIAZEPINES URINE REFLEX NEGATIVE (NEGATIVE); CANNABINOIDS URINE REFLEX NEGATIVE (NEGATIVE); COCAINE METABOLITE URINE REFLE NEGATIVE (NEGATIVE); METHADONE URINE REFLEX NEGATIVE (NEGATIVE); OPIATES URINE REFLEX NEGATIVE (NEGATIVE); PHENCYCLIDINE URINE REFLEX NEGATIVE (NEGATIVE)
[2017-10-06] MEDS ORDERED: FENTANYL 2MCG/ML ROPIVACAINE 0.2% IN 0.9% NACL 200ML IVBAG As Ordered (01:40)
[2017-10-06] MEDS ORDERED: LACTATED RINGER'S 1000 ML IV (02:02)
[2017-10-06] MEDS ORDERED: ONDANSETRON 4MG/2ML VIAL (J2405) IV ×2 (02:02→06:15)
[2017-10-06] MEDS ORDERED: NALOXONE INJ 0.4 MG/1 ML VIAL (J2310) IV (02:02)
[2017-10-06] MEDS ORDERED: EPIDURAL COMMENT XX (02:02)
[2017-10-06] MEDS ORDERED: ePHEDrine SULFATE 25 MG/5 ML(5MG/ML) SYRINGE IV (02:02)
[2017-10-06] MEDS ORDERED: EPIDURAL/PCA KEYS XX (02:02)
[2017-10-06] MEDS ORDERED: REFRIGERATOR IV KEYS XX (02:02)
[2017-10-06] MEDS ORDERED: diphenhydrAMINE INJ 50MG/ML VIAL (J1200) IV (02:02)
[2017-10-06] MEDS ORDERED: ePHEDrine SULFATE 25 MG/5 ML(5MG/ML) SYRINGE As Ordered (03:03)
[2017-10-06] MEDS ORDERED: PENICILLIN G POTASSIUM IV 2.5 MU in APPROPRIATE DILUENT 1 EA IV (04:30)
[2017-10-06] MEDS ORDERED: OXYTOCIN 30 UNITS IN 0.9% NaCl 500ML IV BAG (J2590) As Ordered (05:07)
[2017-10-06] MEDS ORDERED: DIBUCAINE 1% OINTMENT 30GM TOP (06:15)
[2017-10-06] MEDS ORDERED: PROMETHAZINE 25 MG TAB PO (06:15)
[2017-10-06] MEDS ORDERED: METHYLERGONOVINE MALEATE 0.2 MG/ML VIAL (J2210) IM (06:15)
[2017-10-06] MEDS: PENICILLIN G POTASSIUM IV 5 MU in D5W MINI-BAG PLUS 100 ML IV (11:28)
[2017-10-06] MEDS: PRENATAL VITAMINS CHEWABLE TABLET PO (11:29)
[2017-10-06] MEDS: FENTANYL/ROPIVACAINE/NACL BAG 200 ML EPIDURAL (11:29)
[2017-10-06] MEDS: DOCUSATE SODIUM 100 MG CAP PO ×2 (11:29→20:45)
[2017-10-06] MEDS: LR 1,000 ML IV (11:29)
[2017-10-06] MEDS: OXYTOCIN DRIP 30 UNITS in APPROPRIATE DILUENT 1 EA IV (11:29)
[2017-10-07] MEDS: DOCUSATE SODIUM 100 MG CAP PO ×2 (07:49→21:20)
[2017-10-07] MEDS: PRENATAL VITAMINS CHEWABLE TABLET PO (07:49)
[2017-10-07] MEDS: IBUPROFEN 800 MG TAB PO (07:49)
[2017-10-07 10:53] LABS: FETAL SCREEN PROF. 1 1
[2017-10-07] MEDS: RHOGAM 300 MCG (1500 IU) INJ (J2790) IM (15:13)
[2017-10-07] MEDS: MEASLES,MUMPS,RUBELLA VACCINE INJ (MMR-II) (90707) SC (19:13)
[2017-10-07] MEDS: ACETAMINOPHEN 500 MG TAB PO (22:00)
[2017-10-08] MEDS: DOCUSATE SODIUM 100 MG CAP PO (09:47)
[2017-10-08] MEDS: PRENATAL VITAMINS CHEWABLE TABLET PO (09:47)
[2017-10-08] MEDS: medroxyPROGESTERone ACET IM SUSP 150 MG/ML VIAL (J1050) IM (10:05)
== END 2017-10-08 13:06 | disposition home or self-care (01) | DRG 775 ==
LOC: M LDO 22:31 → M LDI 23:48 → M OBS 10-06 11:18
PROC: 10E0XZZ Delivery of Products of Conception, External Approach (ICD-10-PCS; principal; 2017-10-06)
PROC: 0HQ9XZZ Repair Perineum Skin, External Approach (ICD-10-PCS; 2017-10-06)
PROC: 30233S1 Transfusion of Nonautologous Globulin into Peripheral Vein, Percutaneous Approach (ICD-10-PCS; 2017-10-07)
DX: O99.824 Streptococcus B carrier state complicating childbirth (principal); Z37.0 Single live birth; Z3A.39 39 weeks gestation of pregnancy; Z91.19 Patient's noncompliance with other medical treatment and regimen; O70.0 First degree perineal laceration during delivery